=== PATIENT | female | born 1975 | race Caucasian/White ===

== ENCOUNTER 2016-06-05 21:33 | Emergency (ER) | payer BC ==
[2016-06-05] MEDS ORDERED: Proparacaine 0.5% Ophth Soln 15 ML Bottle EYELF STA (22:07)
[2016-06-05] MEDS ORDERED: Erythromycin Base 0.5% Ophth Oint 1 GM Tube EYELF ONE (22:31)
--- NOTE | 2016-06-05 22:31 | EDM.PDOC ---
ED HPI EYE COMPLAINT - General Chief Complaint: Eye Problems Stated Complaint: PT LT EYE SWOLLEN Time Seen by Provider: 06/05/16 21:53 Source: Reports: Patient History Limitations: Reports: No limitations - History of Present Illness INITIAL COMMENTS - FREE TEXT/NARRATIVE: HISTORY AND PHYSICAL: History of present illness: 32-year-old female now complaining of left eye conjunctivitis today. I has discharge and lids are swollen and painful. Patient did not get any foreign body nor have any injury. I began gradually are dated today so she removed her contact. She lower her glasses. There is some discharge that yellowish. Patient has no STD or STD exposure. She denies other viral symptoms. No fevers chills sweats or shaking chills. It does not hurt to move her eye. No headache or stiff neck. Review of systems: As per history of present illness and below otherwise all systems reviewed and negative. Past medical history: As per history of present illness and as reviewed below otherwise noncontributory. Surgical history: As per history of present illness and as reviewed below otherwise noncontributory. Social history: No reported history of drug or alcohol abuse. Family history: As per history of present illness and as reviewed below otherwise noncontributory. Physical exam: Patient with scleral injection left eye with mild palpebral edema and injection of the tarsal conjunctiva. Normal appearing cornea grossly normal pupillary reflex which is painless directly and with consensual examination. Normal gross anterior chamber. There is limbic sparing. Lids everted no foreign body visualized. No fluorescein uptake of the cornea and no dye uptake with lamp. Patient did get relief with topical treatment with Alcaine HEENT: Atraumatic, normocephalic, pupils reactive, negative for conjunctival pallor or scleral icterus, mucous membranes moist, neck supple, nontender, trachea midline. Lungs: Normal and symmetrical chest wall excursion bilaterally Heart: No tachycardia in triage Abdomen: Nondistended Pelvis: Stable nontender. Genitourinary: Deferred. Rectal: Deferred. Extremities: Atraumatic, unremarkable Neuro: Awake, alert, oriented. Cranial nerves grossly unremarkable. Exam nonfocal. Diagnostics: [] Therapeutics: [] Impression: [] Plan: [Signs and symptoms consistent with conjunctivitis. Discussed with patient bacterial versus viral but given discharge we'll cover for the possibility of bacterial. Patient states her vision is baseline. According has no dye uptake she is painless direct and consensual pupillary reflex. Normal-appearing anterior chamber. Mild injection of the bulbar conjunctiva and also injection and thickening of the tarsal conjunctiva no foreign bodies. Patient has been seen in the ophthalmology office previously and is aware to followup in one to 2 days especially to be sure to follow up immediately if her symptoms are worsening Despite treatment. Definitive disposition and diagnosis as appropriate pending reevaluation and review of above. - Related Data Allergies/ADRs: Allergies No Known Allergies Allergy (Verified 06/05/16 21:38) Home Meds: Ambulatory Orders Medication Instructions Recorded Confirmed Lisdexamfetamine [Vyvanse] 50 mg PO DAILY 06/05/16 06/05/16 Polymyxin B Sulf/Trimethoprim 10 ml EYELF 6XDAY #2 drops 06/05/16 [Polymyxin B-Tmp Eye Drops] Past Medical History HEENT History: Reports: Other (see below) Other HEENT History: on eye glasses. 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: Musculoskeletal History: Reports: None Neurological History: Reports: MS Psychiatric History: Reports: Anxiety Endocrine/Metabolic History: Reports: None Hematologic History: Reports: None Oncologic (Cancer) History: Reports: None Dermatologic History: Reports: None - Infectious Disease History Infectious Disease History: Reports: None - Past Surgical History Other Endocrine Surgeries/Procedures: partial thyroidectomy Social & Family History - Family History Family Medical History: Noncontributory - Tobacco Use Smoking Status *Q: Current Some Day Smoker Years of Tobacco use: 1 Packs/Tins Daily: 0.3 - Caffeine Use Caffeine Use: Reports: Soda - Recreational Drug Use Recreational Drug Use: No ED ROS GENERAL - Review of Systems Review Of Systems: See Below (History of present illness) ED EXAM GENERAL W FULL EYE - Physical Exam Exam: See Below (History of present illness) Course - Vital Signs Last Recorded V/S: Last Vital Signs Temp 36.8 C 06/05/16 21:39 Pulse 89 06/05/16 21:39 Resp 16 06/05/16 21:39 BP 152/98 H 06/05/16 21:39 Pulse Ox 98 06/05/16 21:39 - Orders/Labs/Meds Meds: Medications Discontinued Medications Generic Name Dose Route Start Last Admin Trade Name Abby PRHarley Reason Stop Dose Admin Erythromycin 1 gm 06/05/16 22:31 06/05/16 22:48 Erythromycin 0.5% Ophth Oint EYELF 06/05/16 22:32 1 applic ONETIME ONE Administration Proparacaine HCl 1 ml 06/05/16 22:07 06/05/16 22:20 Proparacaine 0.5% Ophth Soln EYELF 06/05/16 22:08 1 ml NOW STA Administration Departure - Departure Time of Disposition: 22:40 Disposition: Home, Self-Care 01 Condition: good Clinical Impression: Conjunctivitis, left eye, Conjunctivitis Prescriptions: Polymyxin B Sulf/Trimethoprim [Polymyxin B-Tmp Eye Drops] 10 ml EYELF 6XDAY #2 drops Instructions: Bacterial Conjunctivitis, [id number] Referrals: PCP,None [Primary Care Provider] - Forms: ED Department Discharge Additional Instructions: The following information is given to patients seen in the emergency department who are being discharged to home. This information is to outline your options for follow-up care. We provide all patients seen in our emergency department with a follow-up referral. The need for follow-up, as well as the timing and circumstances, are variable depending upon the specifics of your emergency department visit. If you don't have a primary care physician on staff, we will provide you with a referral. We always advise you to contact your personal physician following an emergency department visit to inform them of the circumstance of the visit and for follow-up with them and/or the need for any referrals to a consulting specialist. The emergency department will also refer you to a specialist when appropriate. This referral assures that you have the opportunity for follow-up care with a specialist. All of these measure are taken in an effort to provide you with optimal care, which includes your follow-up. Under all circumstances we always encourage you to contact your private physician who remains a resource for coordinating your care. When calling for follow-up care, please make the office aware that this follow-up is from your recent emergency room visit. If for any reason you are refused follow-up, please contact the [facility] Emergency Department at and asked to speak to the emergency department charge nurse. You have conjunctivitis in her left eye. Sometimes this is caused by a virus and sometimes it's caused by bacteria. When there is a possibly discharge his typical that we cover U. with antibiotic drops and ointment for the possibility of bacterial infection. Use 2 drops every 2 hours while awake in one quarter- inch of ointment at bedtime. Followup with ophthalmology, Dr. John bobby and. # 4 the [facility] is [phone]. If your symptoms get much worse tomorrow call that number and there will be a number to contact the systems qa analyst at which time he could advise you or see you in the office. Otherwise followup Tuesday with the eye doctor if your symptoms are not improving. Use strict contact precautions and handwashing as conjunctivitis is very contagious.
[2016-06-05 23:05] VITALS: BP 128/78
== END 2016-06-05 23:05 | disposition home or self-care (01) ==
LOC: MW.ED 21:33
DX: H10.9 Unspecified conjunctivitis (principal); F17.210 Nicotine dependence, cigarettes, uncomplicated; Z79.899 Other long term (current) drug therapy
CPT/HCPCS: 99282; A9270; 99283